=== PATIENT | female | born 1980 | race Hispanic/Latino ===

== ENCOUNTER 2023-04-05 13:31 | Emergency (ER) | payer OTHER ==
[~2023-04-05] VITALS: Ht 149.9 cm; Wt 74.8 kg
[2023-04-05 13:41] VITALS: BP 160/107; PULSE 106; RESP 18
[2023-04-05] MEDS ORDERED: IBUPROFEN 600 MG TABLET PO ONE (15:00)
[2023-04-05] MEDS ORDERED: ACETAMINOPHEN 500 MG TABLET PO ONE (15:00)
[2023-04-05 15:22] LABS: HCG,QUALITATIVE URINE NEGATIVE (NEGATIVE)
[2023-04-05 15:23] LABS: BILIRUBIN,URINE NEGATIVE (NEGATIVE); COLOR,URINE YELLOW (YELLOW); GLUCOSE, URINE (UA) >=1000 mg/dL (NEGATIVE); KETONES,URINE NEGATIVE (NEGATIVE); LEUKOCYTE ESTERASE ,URINE NEGATIVE Leu/uL (NEGATIVE); NITRATE,URINE NEGATIVE (NEGATIVE); OCCULT BLOOD,URINE NEGATIVE (NEGATIVE); PROTEIN,URINE 50 mg/dL (NEGATIVE); UROBILINOGEN,URINE 12 mg/dL (0.2-1.0)
[2023-04-05 15:24] LABS: ADD UA MICROSCOPIC YES; APPEARANCE,URINE HAZY (CLEAR)
[2023-04-05 15:26] LABS: MUCUS,URINE RARE LPF (None Seen); RBC,URINE 0-1 /HPF (0-1); SQUAMOUS EPITHELIAL CELL,UR MANY /HPF (0-2); WBC,URINE 0-1 /HPF (0-1)
[2023-04-05 15:31] LABS: SARS-CoV-2, RNA, NAAT NEGATIVE SARS CoV-2 (NEGATIVE)
[2023-04-05 15:35] LABS: RAPID GROUP A STREP negative (NEGATIVE)
[2023-04-05 15:42] LABS: INFLUENZA TYPE B Negative For Type B (NEGATIVE)
[2023-04-05 16:01] LABS: INFLUENZA TYPE A Positive For Type A (NEGATIVE)
[2023-04-05] MEDS ORDERED: AZIT250T9 PO (16:23)
[2023-04-05] MEDS ORDERED: BENZ200C53 PO (16:23)
[2023-04-05] MEDS ORDERED: OSEL75 PO (16:23)
[2023-04-05] MEDS ORDERED: FLUT16H NASAL (16:23)
== END 2023-04-05 16:47 | disposition home or self-care (01) ==
LOC: EDH 13:31
DX: J10.1 Influenza due to other identified influenza virus with other respiratory manifestations (principal); B34.9 Viral infection, unspecified; Z20.822 Contact with and (suspected) exposure to COVID-19
CPT/HCPCS: 81001; 81025; 87635; 87804; 87880

== ENCOUNTER → 2024-11-24 | Emergency (ER) | payer BC, OTHER ==
[~2024-11-24] VITALS: Ht 152.4 cm; Wt 69.9 kg
[~2024-11-24] MED LIST: AZIT250T9 PO; BENZ200C53 PO; FLUT16H NASAL; IBUP-2077 PO; OSEL75 PO
[2024-11-24 10:06] VITALS: TEMP 98.1
--- NOTE | 2024-11-24 10:16 | ERN ---
ED Note History of Present Illness Stated Complaint: LT KNEE PAIN Chief Complaint: Knee Injury/Swelling Time Seen by MD: 10:11 Dictation: IN HIS A 44-YEAR-OLD FEMALE COMING IN TODAY WITH COMPLAINTS OF LEFT KNEE PAIN STATUS POST A SLIP FALL YESTERDAY. SHE STATES SHE WAS STANDING WHEN SHE LEANED OVER TO DO SOMETHING ON THE GROUND WHEN SHE FELL ON HER LEFT KNEE. SHE HAS BEEN AMBULATORY SINCE NOTHING HAS BEEN TAKEN PRIOR TO ARRIVAL FOR PAIN. DISTAL NEUROVASCULAR CMS INTACT. NO HIP PAIN NO BACK PAIN. Allergies: Coded Allergies: No Known Drug Allergies (Unverified Allergy, Unknown, 04/05/23) Home Meds Active Scripts Azithromycin (Azithromycin) 250 Mg Tablet, 250 MG PO DAILY, #6 TAB Take 2 now then 1 daily until complete Prov:SHARON CAMPOS [facility] 04/05/23 Fluticasone Propionate (Flonase Nasal [place]) 50 Mcg/Actuation [place], 50 MCG NASAL DAILY PRN for NASAL CONGESTION for 10 Days, #1 SPRAY Prov:SHARON CAMPOS [facility] 04/05/23 Benzonatate (Benzonatate) 200 Mg Capsule, 200 MG PO TID PRN for COUGH for 14 Days, #42 CAP Prov:SHARON CAMPOS [facility] 04/05/23 Oseltamivir Phosphate (Tamiflu) 75 Mg Cap, 75 MG PO BID, #10 CAP Prov:SHARON CAMPOS [facility] 04/05/23 Past Medical History Past Medical History: No Pertinent History Surgical History: History: Not Applicable LMP: Nov 08, 2024 RN Note Reviewed/Agreed w/PFSH: Yes Review of System Dictation CONSTITUTIONAL: NEGATIVE EXCEPT FOR HPI HEAD/FACE: NEGATIVE EXCEPT FOR HPI EENT: NEGATIVE EXCEPT FOR HPI RESPIRATORY: NEGATIVE EXCEPT FOR HPI GASTROINTESTINAL/ABDOMINAL: NEGATIVE EXCEPT FOR HPI GENITOURINARY: NEGATIVE EXCEPT FOR HPI MUSCULOSKELETAL: NEGATIVE EXCEPT FOR HPI KNEE PAIN INTEGUMENTARY: NEGATIVE EXCEPT FOR HPI NEUROLOGICAL/PSYCH: NEGATIVE EXCEPT FOR HPI HEMATOLOGIC/LYMPHATIC: NEGATIVE EXCEPT FOR HPI ALL SYSTEMS NEGATIVE, EXCEPT NOTED ABOVE. 13 POINT REVIEW OF SYSTEMS ASSESSED AND ALL NEGATIVE EXCEPT FOR ABOVE. Initial Vital Sign VS Vital Signs Date Time Temp Pulse Resp B/P (MAP) Pulse Ox O2 Delivery O2 Flow Rate FiO2 11/24/24 10:06 98.1 84 18 148/88 100 Room Air 0 11/24/24 10:30 21 Physical Exam Dictation VITAL SIGNS REVIEWED GENERAL APPEARANCE: ALERT, ORIENTED X 3, MODERATE ACUTE DISTRESS, WELL DEVELOPED, NOURISHED. HEAD AND FACE: NON-TRAUMATIC. EYES: PERRL, PINK CONJUNCTIVAS, EYELID NO TRAUMA, ANTERIOR CHAMBER WITH ARCUS SENILIS. EARS: PINNAS INTACT AND NO SIGNS OF TRAUMA OR ERYTHEMA EAR CANALS CLEAR AND NO DISCHARGE TM NO ERYTHEMA NOSE: NO DISCHARGE, NO BLEEDING. OROPHARYNX: MOUTH NORMAL, TONGUE PINK, PHARYNX CLEAR,NO ERYTHEMA, TONSILS NO EXUDATES, NO ABSCESSES NOTED, MUCOUS MEMBRANE MOIST NECK: SUPPLE, NON-TENDER, NO THYROMEGALY, NO MASSES, NO JVD, NO BRUITS BREAST:DEFERRED CHEST:NO TENDERNESS, NO CREPITUS, NO PARADOXICAL MOVEMENT, NO RETRACTIONS LUNGS:CLEAR, WELL-VENTILATED, SYMMETRIC, NO RALES, NO WHEEZING, NO RHONCHI, NO STRIDOR, GOOD BREATH SOUNDS BILATERALLY HEART: REGULAR RATE, REGULAR RHYTHM, NO MURMUR, NO GALLOPS VASCULAR: NO PERIPHERAL EDEMA, ABDOMEN: SOFT, POSITIVE BOWEL SOUNDS, NONDISTENDED, NO GUARDING, NONTENDER, NO REBOUND, NO MASSES NO HEPATOMEGALY, NO SPLENOMEGALY, NO WILSON'S SIGN, NO HERNIAS. RECTAL: DEFERRED GENITAL: DEFERRED NEUROLOGICAL: NORMAL SPEECH, MOTOR FUNCTION INTACT, SENSORY FUNCTION INTACT MUSCULOSKELETAL: NECK NONTENDER, FULL RANGE OF MOTION, BACK NONTENDER, FULL RANGE OF MOTION, EXTREMITIES: LEFT ANTERIOR KNEE PAIN TENDERNESS. [place] DISTAL NEUROVASCULAR CMS INTACT. SKIN: COLOR PINK, DRY, NO TURGOR, NO RASH, NO LACERATIONS, NO ABRASIONS, NO CONTUSIONS. LYMPHATIC: DEFERRED Results (Laboratory/Radiology) Laboratory/Radiology 1107, LEFT KNEE X-RAY NEGATIVE Labs Reviewed?: Yes ED Course ED Course Orders Procedure Category Date Status Time Knee 3vws Lt RAD 11/24/24 Resulted 10:13 Acetaminophen With PHA 11/24/24 Complete Codeine (Tylenol-Code 10:30 Current Medications Medications (Trade) Dose Ordered Sig/Jael Route PRN Reason Start Time Stop Time Status Last Admin Dose Admin Acetaminophen/ Codeine Phosphate (TYLenol-coDEINE TAB) 2 tab ONCE ONCE PO 11/24/24 10:30 11/24/24 10:31 DC 11/24/24 10:34 Vital Signs Date Time Temp Pulse Resp B/P (MAP) Pulse Ox O2 Delivery O2 Flow Rate FiO2 11/24/24 10:30 90 20 175/90 95 Room Air* 0 21 11/24/24 10:06 98.1 84 18 148/88 100 Room Air 0 Medical Decision Making MDM 110 MEDICAL DECISION-MAKING BASED ON X-RAY OF LEFT KNEE STATUS POST FALL AND EMPIRIC TREATMENT FOR PAIN. PAIN IS MARKEDLY REDUCED AFTER TREATMENT TYLENOL WITH CODEINE KNEE X-RAY NEGATIVE PATIENT DIAGNOSED WITH LEFT KNEE CONTUSION AND FALL TOLD TO SEE HER PRIMARY CARE DOCTOR IN ACTIVITY TOLERATED GIVEN RICE INSTRUCTIONS DX & DISP Disposition: Discharge Departure Impression: Primary Impression: Contusion of left knee, initial encounter Additional Impression: Fall Condition: Stable Scripts Ibuprofen (Ibuprofen 800 mg Tab) 800 Mg Tab 800 MG PO Q8H PRN for fever or pain, #30 TAB 0 Refills Prov: FINN RIVAS NP 11/24/24 Additional Instructions: FOLLOW-UP WITH PRIMARY CARE PROVIDER IN 1 TO 2 DAYS. TAKE MEDICATIONS DIRECTED HERE IN THE EMERGENCY ROOM. OKAY TO CONTINUE HOME MEDICATIONS UNLESS OTHERWISE DISCUSSED DURING YOUR VISIT IN THE EMERGENCY ROOM TODAY. RETURN TO YOUR NEAREST EMERGENCY ROOM IF SYMPTOMS WORSEN OR IF THERE IS NO IMPROVEMENT. CALL 911 IF YOU NEED IMMEDIATE ASSISTANCE. TAKE TYLENOL OR MOTRIN [id number] NEEDED AND IF NO CONTRAINDICATIONS ARE PRESENT. INCREASE ORAL HYDRATION. A WOUND CULTURE OR URINE CULTURE WAS ORDERED HERE IN THE EMERGENCY ROOM DEPARTMENT PLEASE FOLLOW-UP WITH PRIMARY CARE PROVIDER AND ADVISE THEM TO GET REPEAT PORTS FROM OUR FACILITY. IF YOU HAD ANY DANIELE WRAP/SPLINTS THAT WERE APPLIED HERE, PLEASE DO NOT REMOVE THEM UNTIL YOU SEE YOUR PRIMARY CARE OR SPECIALTY. COOL COMPRESSES TO LEFT KNEE THREE TO 4 TIMES A DAY. TAKE IBUPROFEN NEEDED WITH FOOD. FOLLOW UP WITH YOUR PRIMARY CARE DOCTOR IN THE NEXT 1-2 DAYS. DIET AND ACTIVITY TOLERATED. Referrals: MARCELO LANGE MD (PCP) Time of Disposition: 11:09 I have reviewed the case, and I agree with, Diagnosis and Plan FINN RIVAS NP Nov 24, 2024 10:16
[2024-11-24 10:30] VITALS: BP 175/90; PULSE 90; RESP 20; O2SAT 95
--- NOTE | 2024-11-24 11:07 | HMCIMG ---
EXAM: CR left Knee, 3 View. CLINICAL HISTORY: LEFT KNEE PAIN STATUS POST SAME LEVEL FALL YESTERDAY COMPARISON: None provided. FINDINGS: BONES: No acute fracture or aggressive appearing osseous lesion. JOINTS: The joint spaces show no significant degenerative disease. There is no joint effusion appreciated. SOFT TISSUES: The soft tissues are unremarkable. IMPRESSION: No acute osseous pathology evident. /[place]
== END ==
LOC: EDH 10:04
DX: S80.02XA Contusion of left knee, initial encounter (principal); W18.39XA Other fall on same level, initial encounter; Y93.89 Activity, other specified; Y92.89 Other specified places as the place of occurrence of the external cause; Y99.8 Other external cause status
CPT/HCPCS: 73562; 99283